=== PATIENT | male | born 1970 | race African-American/Black ===

== ENCOUNTER 2017-12-16 12:11 | Outpatient (CLI) | payer OTHER | END 2017-12-16 12:12 | disposition home or self-care (01) | LOC: ULT 12:11 | PROVIDERS: ATTEND Psychiatry & Neurology Neurology | DX: L97.509 Non-pressure chronic ulcer of other part of unspecified foot with unspecified severity (principal); R09.89 Other specified symptoms and signs involving the circulatory and respiratory systems | CPT/HCPCS: 93922 ==